=== PATIENT | male | born 1990 | race Caucasian/White ===

== ENCOUNTER 2018-08-30 22:12 | Emergency (ER) | payer OTHER ==
[~2018-08-30] VITALS: Ht 190.5 cm; Wt 106.6 kg
[2018-08-30 22:18] VITALS: BP 119/75
[2018-08-30 22:41] LABS: URINE BILIRUBIN NEGATIVE (Negative); URINE BLOOD NEGATIVE (Negative); URINE CLARITY CLEAR; URINE COLOR YELLOW; URINE GLUCOSE-RANDOM NEGATIVE (Negative); URINE KETONES NEGATIVE (Negative); URINE LEUKOCYTES-REFLEX NEGATIVE (Negative); URINE NITRITE-REFLEX NEGATIVE (Negative); URINE PROTEIN NEGATIVE (Negative); URINE SPECIFIC GRAVITY >= 1.030 (1.005-1.030); URINE UROBILINOGEN 0.2 E.U./dl (0.2-1.0)
[2018-08-30] MEDS ORDERED: PROAIR HFA8.5 GM INH (22:41)
== END 2018-08-30 23:01 | disposition home or self-care (01) ==
LOC: M.ERS 22:12
PROVIDERS: Physician Assistant
DX: Z20.2 Contact with and (suspected) exposure to infections with a predominantly sexual mode of transmission (principal); Z76.0 Encounter for issue of repeat prescription; R36.9 Urethral discharge, unspecified; J45.909 Unspecified asthma, uncomplicated; F17.200 Nicotine dependence, unspecified, uncomplicated; Z88.8 Allergy status to other drugs, medicaments and biological substances

== ENCOUNTER 2019-04-15 21:59 | Emergency (ER) | payer OTHER ==
[~2019-04-15] VITALS: Ht 190.5 cm; Wt 104.3 kg
[~2019-04-15 21:59] MED LIST: PROAIR HFA8.5 GM INH
[2019-04-15] MEDS ORDERED: NORCO 5-325 TA1 EAC1 PO (22:52)
[2019-04-15 23:14] VITALS: BP 128/72
== END 2019-04-15 23:15 | disposition home or self-care (01) ==
LOC: M.ERS 21:59
DX: S63.656A Sprain of metacarpophalangeal joint of right little finger, initial encounter (principal); J45.909 Unspecified asthma, uncomplicated; F17.210 Nicotine dependence, cigarettes, uncomplicated; Z88.8 Allergy status to other drugs, medicaments and biological substances; W01.0XXA Fall on same level from slipping, tripping and stumbling without subsequent striking against object, initial encounter; Y93.89 Activity, other specified; Y92.89 Other specified places as the place of occurrence of the external cause; Y99.8 Other external cause status

== ENCOUNTER 2019-09-28 06:51 | Emergency (ER) | payer OTHER ==
[~2019-09-28] VITALS: Ht 190.5 cm; Wt 100.7 kg
[~2019-09-28 06:51] MED LIST changes: +NORCO 5-325 TA1 EAC1 PO
[2019-09-28 07:29] LABS: ABSOLUTE EOSINOPHILS 0.3 thou/uL (0.0-0.7); ABSOLUTE LYMPHOCYTES 1.5 thou/uL (0.8-5.3); ABSOLUTE MONOCYTES 0.4 thou/uL (0.0-1.2); BASOPHILS 0.4 %; EOSINOPHILS 4.9 %; HEMATOCRIT 47.1 % (42.0-52.0); HEMOGLOBIN 16.8 gm/dL (14.0-18.0); LYMPHOCYTES 23.7 %; MCH 31.7 pg (26.0-34.0); MCHC 35.6 g/dL (28.0-37.0); MONOCYTES 6.9 %; MPV 7.2 fl. (7.2-11.1); NUCLEATED RBCS 0 /100WBC; PLATELET COUNT* 224 thou/uL (150-400); POLYS 64.1 %; RBC 5.29 mil/uL (4.50-6.00); RDW-CV 13.2 % (10.5-14.5); WBC 6.3 thou/uL (4.0-11.0)
[2019-09-28 07:35] LABS: CALCIUM 8.8 mg/dL (8.5-10.1); CREATININE 1.4 mg/dL (0.6-1.3)
[2019-09-28] MEDS ORDERED: VENTOLIN HFA 1818 GM INH (08:32)
[2019-09-28 08:34] VITALS: BP 136/72
== END 2019-09-28 08:34 | disposition home or self-care (01) ==
LOC: M.ERS 06:51
PROVIDERS: Family Medicine
DX: B34.9 Viral infection, unspecified (principal); F17.210 Nicotine dependence, cigarettes, uncomplicated; R63.0 Anorexia; J45.909 Unspecified asthma, uncomplicated; Z68.27 Body mass index [BMI] 27.0-27.9, adult; Z88.8 Allergy status to other drugs, medicaments and biological substances; Z79.899 Other long term (current) drug therapy